=== PATIENT | male | born 2000 | race Caucasian/White ===

== ENCOUNTER 2022-03-30 17:39 | Emergency (ER) | payer MEDICAID, OTHER ==
[~2022-03-30] VITALS: Ht 177.8 cm; Wt 78.9 kg
--- NOTE | 2022-03-30 19:09 | NUR ---
pt ambulated to room 4b pt c/o mid abd pain.
--- NOTE | 2022-03-30 19:12 | NUR ---
Dr. Deluna at bedside for mSE.
[2022-03-30 19:41] LABS: HEMATOCRIT 43.3 % (36.7-47.1); MEAN CORPUSCULAR HEMOGLOBIN 29.3 uug (23.8-33.4); MEAN CORPUSCULAR VOLUME 85.5 fL (73.0-96.2); PLATELET COUNT (AUTO) 186 K/uL (152-348)
[2022-03-30 19:42] LABS: CREATININE 0.8 mg/dL (0.6-1.3); POTASSIUM 3.7 mmol/L (3.5-5.1)
[2022-03-30 19:47] LABS: BILIRUBIN,DIRECT 0.2 mg/dL (0.0-0.2); BILIRUBIN,TOTAL 0.7 mg/dL (0.2-1.0); TOTAL PROTEIN, SERUM 7.6 g/dL (6.4-8.2)
[2022-03-30] MEDS ORDERED: PROC10TA29 PO (20:55)
[2022-03-30] MEDS ORDERED: BISA-79 PO (20:56)
--- NOTE | 2022-03-30 21:05 | NUR ---
Patient discharged to home in stable condition. Written and verbal after care instructions given. Patient verbalizes understanding of instructions. Stressed follow up or return to ER for worsening s/s.
[2022-03-30 21:12] VITALS: BP 130/80
== END 2022-03-30 21:13 | disposition home or self-care (01) ==
LOC: ER 17:39
DX: R10.10 Upper abdominal pain, unspecified (principal); K59.00 Constipation, unspecified; R11.10 Vomiting, unspecified; R03.0 Elevated blood-pressure reading, without diagnosis of hypertension
CPT/HCPCS: 36415; 74021; 83690; 85025; A4663